=== PATIENT | female | born 1955 | race Caucasian/White ===

== ENCOUNTER 2016-07-02 10:46 | Outpatient (CLI) | payer OTHER ==
[2011-03-11 06:15] VITALS: BMI 24.9
== END 2016-07-02 11:51 ==
LOC: D.MAMMO 10:46
DX: Z12.31 Encounter for screening mammogram for malignant neoplasm of breast (principal)

== ENCOUNTER → 2017-07-21 08:00 | Outpatient (CLI) | payer OTHER ==
[2011-03-11 06:15] VITALS: BMI 24.9
== END | disposition home or self-care (01) ==
LOC: D.MAMMO 08:00
DX: Z12.31 Encounter for screening mammogram for malignant neoplasm of breast (principal)

== ENCOUNTER 2017-08-05 08:00 | Outpatient (CLI) | payer OTHER ==
[2011-03-11 06:15] VITALS: BMI 24.9
== END 2017-08-05 09:00 | disposition home or self-care (01) ==
LOC: D.MAMMO 08:00
DX: R92.8 Other abnormal and inconclusive findings on diagnostic imaging of breast (principal)

== ENCOUNTER 2018-07-22 10:30 | Outpatient (CLI) | payer OTHER ==
[2011-03-11 06:15] VITALS: BMI 24.9
== END 2018-07-22 11:00 | disposition home or self-care (01) ==
LOC: D.MAMMO 10:30
PROVIDERS: ATTEND Family Medicine
DX: Z12.31 Encounter for screening mammogram for malignant neoplasm of breast (principal)

== ENCOUNTER → 2019-07-27 22:32 | Outpatient (CLI) | payer OTHER ==
[2011-03-11 06:15] VITALS: BMI 24.9
== END | disposition home or self-care (01) ==
LOC: D.MAMMO 10:15
PROVIDERS: ATTEND Family Medicine
DX: Z12.31 Encounter for screening mammogram for malignant neoplasm of breast (principal)

== ENCOUNTER 2020-07-27 14:30 | Outpatient (CLI) | payer OTHER ==
[2011-03-11 06:15] VITALS: BMI 24.9
== END 2020-07-27 23:59 | disposition home or self-care (01) ==
LOC: D.MAMMO 14:30
PROVIDERS: ATTEND Nurse Practitioner
DX: Z12.31 Encounter for screening mammogram for malignant neoplasm of breast (principal)